=== PATIENT | female | born 1960 | race Caucasian/White ===

== ENCOUNTER → 2021-04-16 | Outpatient (CLI) | payer OTHER ==
--- NOTE | 2021-04-16 12:34 | XR ---
EXAMINATION TYPE: XR shoulder complete LT DATE OF EXAM: 04/16/2021 CLINICAL HISTORY: Pain with lifting TECHNIQUE: Three views of the left shoulder are obtained. COMPARISON: None. FINDINGS: There is no acute fracture/dislocation evident in the left shoulder. The acromioclavicula r and glenohumeral joint spaces appear within normal limits. The visualized ribs are intact and unre markable. IMPRESSION: There is no acute fracture or dislocation in the left shoulder.
== END | disposition home or self-care (01) ==
LOC: RADXRMAIN 12:04
PROVIDERS: ATTEND Emergency Medicine
DX: M25.512 Pain in left shoulder (principal)

== ENCOUNTER → 2021-05-02 | Outpatient (CLI) | payer OTHER ==
--- NOTE | 2021-05-02 16:58 | MR ---
EXAMINATION TYPE: MR shoulder LT wo con DATE OF EXAM: 05/02/2021 COMPARISON: 04/16/2021 HISTORY: 61-year-old female with left shoulder pain, strain TECHNIQUE: Multiplanar, multisequence imaging of the left shoulder is performed without contrast. FINDINGS: The long biceps tendon appears intact and appropriate situated along the bicipital groove. The majority of the subscapularis tendon is intact. There may be some partial articular sided tearing . Mild degenerative joint space narrowing at the AC joint. There is a downsloping acromion which abuts the underlying supraspinatus tendon. Heterogeneity of both supraspinatus and infraspinatus tendons with a deep tear involving the anterior to mid supraspinous tendon measuring 1.5 cm long and 1.4 cm AP. This may represent a full-thickness tear. A few fibers may remain intact. Small minimal glenohumeral joint effusion. Mild overlying effusion in the subacromial/subdeltoid burs a. No atrophy of the rotator cuff musculature. Some degenerative signal in the posterior superior labrum. There may be a small 3 mm paralabral cyst here. Moderate thinning mid humeral head articular cartilage. No Hill-Sachs deformity or os acromiale. No suspicious bone marrow replacement. IMPRESSION: 1. Diffuse rotator cuff tendinosis. High-grade tear involving the anterior to mid supraspinous tendon measuring 1.5 x 1.4 cm. This may be a full-thickness tear. A few strandy fibers may remain intact. N o rotator cuff muscle atrophy. 2. Downsloping acromion which abuts the underlying supraspinatous tendon. Mild subacromial/subdeltoid bursal effusion. 3. Moderate thinning of mid humeral head articular cartilage. Degenerative signal in the superior lab rum and possible small posterior superior labral tear.
== END | disposition home or self-care (01) ==
LOC: RADMRIMAIN 11:43
PROVIDERS: ATTEND Emergency Medicine
DX: S46.012A Strain of muscle(s) and tendon(s) of the rotator cuff of left shoulder, initial encounter (principal); M19.012 Primary osteoarthritis, left shoulder